=== PATIENT | female | born 1950 | race African-American/Black ===

== ENCOUNTER 2016-08-28 08:28 | Inpatient (IN) | payer OTHER ==
[~2016-08-28] VITALS: Ht 162.6 cm; Wt 67.6 kg
--- NOTE | ~2016-08-28 | EKG ---
[facility] [place] [address] ELECTROCARDIOGRAM REPORT Name: CORONAKAYLIE I Room #: [facility].#: [id number] Admission: Attend Phys: Discharge: Date of : 48 Report #: [id number] THIS REPORT FOR: //name// [facility] ED Test Date: 2016-08-28 Test Time: 08:38:29 Pat Name: KAYLIE CORONA Department: Room: Gender: F [employer]: Ang ERNANDEZ : 1950 Requested By: [place] Order Number: [id number] MD: James Koehler Measurements Intervals [place] Rate: 58 P: 35 ID: 52 QRS: 8 QRSD: 113 T: 12 QT: 442 QTc: 435 Interpretive Statements Sinus rhythm Short ID interval Probable left atrial enlargement Left ventricular hypertrophy Baseline wander in lead(s) I,III,aVL Compared to ECG 10/27/2015 19:30:55 No significant change was found Electronically Signed On 08-28-2016 9:30:06 CDT by James Koehler [email or web address] <ELECTRONICALLY SIGNED> By: James Koehler MD, [facility] 08/28/1630 7 7 James Koehler MD, [facility] /EPI
[~2016-08-28 08:28] MED LIST: ALLEGRA ALLERG180 MG PO; ASPIRIN325; AVAPRO300 MG PO; CALCIUM + D SO1 EACH PO; COLACE100 MG PO; DIOVAN160 MG PO; FISH OIL + D31 EACH PO; HYDROXYCHLOROQ200 M1 PO; KEPPRA250 MG PO; LYRICA 75 MG CA75 MG PO; METAMUCIL PAC1 UDPKT PO; MIRALAX17 GM PO; MUCINEX600 MG PO; NEURONTIN 300300 M1 PO; NORCO 5-325 TA1 EACH PO; NORVASC10 MG PO; NORVASC5 MG PO; PERCOCET; PERCOCET 5-3251 EACH PO; TRAMADOL 50 MG50 MG PO; ULTRAM 50MG TAB50 MG PO; VITACEL PO; ZANTAC 150MG T150 MG PO
[2016-08-28 08:32] VITALS: BP 138/82
[2016-08-28 09:15] LABS: HEMATOCRIT 34.3 % (37.0-47.0); HEMOGLOBIN 11.5 gm/dL (12.0-15.0); MCH 31.9 pg (26.0-34.0); MCHC 33.6 g/dL (28.0-37.0); MCV 94.9 fL (80.0-100.0); PLATELET COUNT 185 thou/uL (150-400); RBC 3.61 mil/uL (4.20-5.00); RDW 14.3 % (10.5-14.5); WBC 3.3 thou/uL (4.0-11.0)
[2016-08-28 09:19] LABS: ANION GAP 8 mmol/L (7-16); BUN 33 mg/dL (7-18); CALCIUM 7.7 mg/dL (8.5-10.1); CHLORIDE 102 mmol/L (98-107); CO2 26 mmol/L (21-32); CREATININE 1.4 mg/dL (0.6-1.0); GLUCOSE 86 mg/dL (74-106); MANUAL DIFF YES; POTASSIUM 3.9 mmol/L (3.5-5.1); SODIUM 136 mmol/L (136-145)
[2016-08-28 09:26] LABS: ALBUMIN 3.3 g/dL (3.4-5.0); ALKALINE PHOSPHATASE 80 U/L (46-116); MAGNESIUM 2.1 mg/dL (1.8-2.4); SGOT 25 U/L (15-37); SGPT 17 U/L (30-65); TOTAL BILIRUBIN 0.3 mg/dL (<0.1-1.0); TOTAL PROTEIN 7.3 g/dL (6.4-8.2); TROPONIN-I < 0.04 ng/mL (<0.04-0.07)
[2016-08-28 09:29] LABS: APTT 33.1 Seconds (24.5-32.8); PROTIME 10.3 Seconds (9.3-11.4)
[2016-08-28 09:37] LABS: ABSOLUTE NEUTROPHILS 2.2 thou/uL (1.4-8.2); PLATELET ESTIMATE NORMAL; TOTAL CELL COUNT 100
[2016-08-28 10:33] VITALS: BP 138/82
[2016-08-28 12:00] VITALS: BP 181/85
[2016-08-28 12:32] LABS: CHOLESTEROL 209 mg/dL (<200); HDL CHOLESTEROL 88 mg/dL (>40); LDL CHOLESTEROL 117 mg/dL (<100); TC:HDL 2.4 Ratio (Not establshd); TRIGLYCERIDE 22 mg/dL (<150); VLDL 4 mg/dL (<40)
[2016-08-28 12:52] LABS: URINE BILIRUBIN NEGATIVE (Negative); URINE BLOOD NEGATIVE (Negative); URINE COLOR YELLOW; URINE GLUCOSE-RANDOM* NEGATIVE (Negative); URINE KETONES NEGATIVE (Negative); URINE NITRITE NEGATIVE (Negative); URINE PROTEIN (DIPSTICK) NEGATIVE (Negative); URINE SPECIFIC GRAVITY <= 1.005 (1.003-1.035); URINE UROBILINOGEN 0.2 E.U./dl (0.2-1.0)
[2016-08-28 13:00] LABS: AMP/METHAMP Negative (Negative); BARBITURATES Negative (Negative); BENZODIAZEPINES Negative (Negative); COCAINE Negative (Negative); METHADONE Negative (Negative); OPIATES Negative (Negative); PCP Negative (Negative); THC Negative (Negative)
[2016-08-28 13:03] LABS: TSH 0.455 uIU/mL (0.358-3.740)
[2016-08-28 13:09] LABS: AMORPHOUS URATES Moderate /LPF (None Seen); CASTS None Seen /LPF (None Seen); SQUAMOUS >10 Many /LPF (0-3); URINE RBC 3-10 Few /HPF (0-2)
[2016-08-28 19:35] VITALS: BP 148/80
[2016-08-29 00:10] VITALS: BP 148/76
[2016-08-29 04:35] VITALS: BP 160/75
[2016-08-29 05:07] LABS: GLYCOHEMOGLOBIN (HGB A1C) 4.9 % (4.8-5.6)
[2016-08-29 07:21] VITALS: BP 125/76
[2016-08-29 11:53] VITALS: BP 105/71
[2016-08-29] MEDS ORDERED: ATORVASTATIN CA20 MG PO (13:05)
[2016-08-29] MEDS ORDERED: ADULT LOW DOSE81 MG PO (13:06)
[2016-08-29 13:57] VITALS: BP 105/71
== END 2016-08-29 15:00 | disposition home or self-care (01) | DRG 69 ==
LOC: ER 08:28 → 4S 09:43 → EROBS 09:43 → 4S 10:50
PROVIDERS: Emergency Medicine; Nurse Practitioner
DX: G45.9 Transient cerebral ischemic attack, unspecified (principal); G40.909 Epilepsy, unspecified, not intractable, without status epilepticus; Z96.659 Presence of unspecified artificial knee joint; M54.12 Radiculopathy, cervical region; E83.51 Hypocalcemia; D72.819 Decreased white blood cell count, unspecified; N88.2 Stricture and stenosis of cervix uteri; I12.9 Hypertensive chronic kidney disease with stage 1 through stage 4 chronic kidney disease, or unspecified chronic kidney disease; N18.9 Chronic kidney disease, unspecified; K21.9 Gastro-esophageal reflux disease without esophagitis; F11.90 Opioid use, unspecified, uncomplicated; M19.90 Unspecified osteoarthritis, unspecified site; E78.5 Hyperlipidemia, unspecified; M25.619 Stiffness of unspecified shoulder, not elsewhere classified; Z79.82 Long term (current) use of aspirin; Z79.899 Other long term (current) drug therapy; Z85.3 Personal history of malignant neoplasm of breast; Z85.828 Personal history of other malignant neoplasm of skin; Z85.41 Personal history of malignant neoplasm of cervix uteri; Z88.8 Allergy status to other drugs, medicaments and biological substances; Z88.1 Allergy status to other antibiotic agents; Z91.041 Radiographic dye allergy status; Z87.442 Personal history of urinary calculi
CPT/HCPCS: 10100

== ENCOUNTER → 2017-03-02 | Outpatient (CLI) | payer OTHER ==
[~2017-03-02] MED LIST changes: +ADULT LOW DOSE81 MG PO; +ATORVASTATIN CA20 MG PO
== END ==
LOC: RAD 04:02
DX: Z12.31 Encounter for screening mammogram for malignant neoplasm of breast (principal)

== ENCOUNTER → 2018-05-16 | Outpatient (CLI) | payer OTHER ==
[~2018-05-16] MED LIST changes: +AVAPRO 150 MG150 M1 PO; +CIPRO500 MG PO; +FLONASE 0.05%50 MCG NASAL; +OMEPRAZOLE40 MG PO; +VITAMIN D1000 UNI1 PO
== END ==
LOC: RAD 08:48
DX: Z12.31 Encounter for screening mammogram for malignant neoplasm of breast (principal)

== ENCOUNTER → 2020-05-24 | Outpatient (CLI) | payer OTHER | LOC: BC 05-19 10:37 | PROVIDERS: ATTEND Internal Medicine | DX: Z12.31 Encounter for screening mammogram for malignant neoplasm of breast (principal) ==